=== PATIENT | male | born 1985 | race Caucasian/White ===

== ENCOUNTER → 2019-03-07 13:45 | Outpatient (CLI) | payer BC, SELFPAY ==
[2019-03-07 10:43] VITALS: BMI 25.8
== END ==
PROVIDERS: Family Provider Family Medicine; PCP Family Medicine; Referring Provider Physician Assistant; Visit Provider Physician Assistant
DX: J02.9 Acute pharyngitis, unspecified (principal); J35.8 Other chronic diseases of tonsils and adenoids
CPT/HCPCS: 87070; 87077

== ENCOUNTER → 2020-09-19 15:11 | Outpatient (CLI) | payer BC, SELFPAY ==
[2019-03-07 10:43] VITALS: BMI 25.8
[2020-09-19 18:24] LABS: Thyroid Stim Hormone (TSH) 1.74 uIU/mL (0.358-3.74)
== END ==
PROVIDERS: PCP Family Medicine; Referring Provider Family Medicine; Visit Provider Family Medicine
DX: F41.9 Anxiety disorder, unspecified (principal); Z20.822 Contact with and (suspected) exposure to COVID-19
CPT/HCPCS: 36415; 84443; 86769